=== PATIENT | male | born 1990 | race Caucasian/White ===

== ENCOUNTER 2019-01-17 01:12 | Emergency (ER) | payer BC ==
[~2019-01-17] VITALS: Ht 172.7 cm; Wt 81.2 kg
[2019-01-17 01:18] VITALS: BP 157/72
--- NOTE | 2019-01-17 01:21 | NUR ---
PT AMBULATED TO ER LOBBY, NO DISTRESS, NO SOB, VSS.
--- NOTE | 2019-01-17 03:39 | NUR ---
PT AMBULATED TO BED 05.
--- NOTE | 2019-01-17 03:40 | NUR ---
28 YO MALE COMES TO ER FOR C/O COUGH. PT STATED, " I WAS SLEEPING AND THEN I FELT LIKE MY HEART WAS RACING AND THEN I WOKE UP." PT CURRENTLY DENIES PAIN, FEVER CHILL, NUMBNESS OR TINGLING. PT DENIES DIZZINESS. PT AAOX4, FOLLOWING COMMANDS, TALKING WITH MOTHER @ BEDSIDE. LUNGS CLEAR EVEN UNLABORED. ABD SOFT NON DISTENDED. SKIN WARM DRY INTACT. GURNEY LOCKED AND IN LOWEST POSITION. WILL UPDATE ER MD.
--- NOTE | 2019-01-17 05:26 | NUR ---
Dr. Estrella evaluating patient at bedside.
[2019-01-17 05:45] VITALS: BP 138/62
== END 2019-01-17 05:26 | disposition home or self-care (01) ==
LOC: MED 01:12
DX: R00.2 Palpitations (principal); R42 Dizziness and giddiness; R07.9 Chest pain, unspecified; R06.02 Shortness of breath; R05 Cough; F17.200 Nicotine dependence, unspecified, uncomplicated
CPT/HCPCS: 93005; 99283

== ENCOUNTER 2019-05-04 20:08 | Emergency (ER) | payer BC ==
[~2019-05-04] VITALS: Ht 175.3 cm; Wt 83.5 kg
[2019-05-04 20:19] VITALS: BP 150/90
--- NOTE | 2019-05-04 20:19 | NUR ---
TO CHAIR E AMBULATORY
[2019-05-04] MEDS ORDERED: AZITHROMYCIN 250 MG TAB PO ONE (20:40)
[2019-05-04] MEDS ORDERED: cefTRIAXone 250 MG in LIDOCAINE MPF 1% - 5 mL VIAL 0.9 ML IM ONE (20:40)
--- NOTE | 2019-05-04 20:44 | NUR ---
LAB TO DRAW PT.
[2019-05-04 21:00] VITALS: BP 150/90
--- NOTE | 2019-05-04 21:00 | NUR ---
Patient discharged with v/s stable. Written and verbal after care instructions given and explained. Patient alert, oriented and verbalized understanding of instructions. Ambulatory with steady gait. All questions addressed prior to discharge. ID band removed. Patient advised to follow up with PMD. Rx of DOLUTEGRAVIR AND EMTRICITABINE/TENOFOVIR given. Patient educated on indication of medication including possible reaction and side effects. Opportunity to ask questions provided and answered.
[2019-05-06 08:19] LABS: HEPATITIS A ANTIBODY IGM Negative (Negative); HEPATITIS B CORE AB TOTAL Negative (Negative); HEPATITIS B SURFACE ANTIBODY Reactive (.); HEPATITIS B SURFACE ANTIGEN Negative (Negative)
[2019-05-07 06:23] LABS: CHLAMYDIA TRACHOMATIS AMP DNA Negative (Negative)
== END 2019-05-04 21:00 | disposition home or self-care (01) ==
LOC: MED 20:08
DX: Z20.2 Contact with and (suspected) exposure to infections with a predominantly sexual mode of transmission (principal)
CPT/HCPCS: 36415; 86592; 86702; 86704; 86706; 86708; 86709; 86803; 87340; 96372; 99283; J0696; J2001; 87491

== ENCOUNTER 2019-05-24 08:50 | Emergency (ER) | payer BC ==
[~2019-05-24] VITALS: Ht 172.7 cm; Wt 89.4 kg
[2019-05-24 08:54] VITALS: BP 145/82
--- NOTE | 2019-05-24 09:10 | NUR ---
PT C/O AWOKE WITH CHEST TIGHTNESS UNPROVOKED NON RADIATING LASTING "FEW MINUTES" X TODAY---FOLLOWED BY A PAIN TO THE FLANK AND BELCHING RELIEVES DISCOMFORT. DENIES N/V/D, DENIES COLD SYMPTOMS, OR INJURY. SKIN IS PINK/WARM/DRY; AAOX4 WITH EVEN AND STEADY GAIT; LUNGS CLEAR BL; HR EVEN AND REGULAR; PT DENIES ANY FEVER, SOB, OR COUGH AT THIS TIME; PATIENT STATES PAIN OF 5/10 AT THIS TIME; VSS; PATIENT POSITIONED FOR COMFORT; HOB ELEVATED; BEDRAILS UP X1; BED DOWN. ER MD MADE AWARE OF PT STATUS.
--- NOTE | 2019-05-24 09:20 | NUR ---
Dr. Estrella is evaluating pt at bedside.
[2019-05-24 09:37] VITALS: BP 117/74
--- NOTE | 2019-05-24 09:37 | NUR ---
Patient discharged with v/s stable. Written and verbal after care instructions given and explained. Patient alert, oriented and verbalized understanding of instructions. Ambulatory with steady gait. All questions addressed prior to discharge. ID band removed. Patient advised to follow up with PMD. Rx of Prilosec and Motrin given. Patient educated on indication of medication including possible reaction and side effects. Opportunity to ask questions provided and answered.
== END 2019-05-24 09:37 | disposition home or self-care (01) ==
LOC: MED 08:50
DX: R07.89 Other chest pain (principal); K21.9 Gastro-esophageal reflux disease without esophagitis; F17.200 Nicotine dependence, unspecified, uncomplicated
CPT/HCPCS: 99283